=== PATIENT | female | born 1945 | race Caucasian/White ===

== ENCOUNTER → 2019-05-03 | Day surgery (SDC) | payer BC ==
--- NOTE | 2019-05-06 22:35 | OP ---
DATE OF OPERATION: 05/03/2019 PREOPERATIVE DIAGNOSIS: Right axillary adenopathy. POSTOPERATIVE DIAGNOSIS: Right axillary adenopathy. PROCEDURE: Right ultrasound guided core biopsy with clip placement. ANESTHESIA: Local. ATTENDING SURGEON: Raphael Atwood M.D. ESTIMATED BLOOD LOSS: Minimal. COMPLICATIONS: None. DESCRIPTION OF PROCEDURE: Patient was made aware of the risks and benefits of the procedure and consented. Patient was placed in supine position. Under sterile conditions with 1% lidocaine for local anesthesia, a small sandra was made in the skin using a 13-gauge suction biopsy device, inferolateral approach, under ultrasound guidance multiple cores were obtained and submitted to pathology. Likewise under ultrasound guidance, a clip was placed into the biopsy region. Well tolerated by the patient. Steri-Strips and a sterile bandage were applied. Will contact her with results. RAPHAEL ATWOOD M.D. [id number]
--- NOTE | 2019-05-10 13:23 | PATH ---
Surgical Pathology Report Patient Name: EDMOND CHEN [facility]. Rec. #: [id number] /Age/Gender: 1945 (Age: 74) / F Account: [id number] Location: [facility] RADIOLOGY U Taken: 05/03/2019 Received: 05/03/2019 Reported: 05/10/2019 Physicians: Raphael Atwood M.D. 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 (SEE NOTE). Note: The specimen is comprised predominantly of detached fragments and clusters of high grade malignant cells with extensive necrosis, amidst portions of lymph node tissue. Immunohistochemical studies performed at [facility] on block#2 show the following results: the malignant cells are negative for cytokeratin AE1/3, CK7, CK20, CD45, CD20 CD3 and S100. Immunohistochemical studies performed at [place], [place] ([id number]) on block #1 show the following results: the malignant cells show patchy moderate positivity for Cam 5.2, GISELLA and CD10. In addition, there is focal positivity for ADRIA-3. There is high Ki67 labeling (> 90%). CK5/6, AE1/3, GCDFP, mammaglobin, E-Cadherin, ER, KS, Her2, TTF-1, thyroglobulin, hepatocyte specific antigen (HSA), glypican 3, arginase, CEA(p), PAX8, RCC, CD30, BCL6, ALK, PAX5, Melan-A, SOX10, calretinin and WT-1 are negative. This malignant neoplasm displays an unusual immunophenotype, however, with a significant subset of the tumor cells showing reactivity for CAM 5.2 (rop-szcezzmjf-diwrgd cytokeratin) and GISELLA (epithelial membrane antigen), a diagnosis of poorly differentiated metastatic carcinoma is favored. CD10 positivity is an unusual finding, however CD10 has been shown to be positive in various non-hematolymphoid malignancies. ADRIA-3 is focally positive in the tumor cells; ADRIA-3 is predominantly positive in carcinomas of mammary and urothelial origin, however, positivity has been reported in malignancies from other primary sites including skin/adnexa. Correlation with clinical findings is recommended, with additional radiologic work-up as deemed necessary. Report of right upper back wedge biopsy from [place], [place] ([id number]) has been reviewed. Case discussed with Dr. Raphael Atwood on 05/10/19. Electronically Signed Nikole Rodriguez M.D. Gross Description Received in formalin labeled "right axilla biopsy," is a 3.0 x 2.3 x 0.3 cm aggregate of kinsey-yellow fragments of fibroadipose tissue admixed with blood clot. The formalin is filtered and the specimen is entirely submitted in 2 cassettes. Time to formalin fixation: < 1 minute Total formalin fixation time: Approximately 6 hours. 05/03/2019 saudi05/03/2019
== END | disposition home or self-care (01) ==
LOC: FRADUS-SUR 12:34
PROVIDERS: ATTEND Surgery Surgical Oncology
PROC: 07B53ZX Excision of Right Axillary Lymphatic, Percutaneous Approach, Diagnostic (ICD-10-PCS; principal; 2019-05-03)
PROC: BH40ZZZ Ultrasonography of Right Breast (ICD-10-PCS; 2019-05-03)
DX: C96.9 Malignant neoplasm of lymphoid, hematopoietic and related tissue, unspecified (principal); R59.0 Localized enlarged lymph nodes
CPT/HCPCS: 19083; 38505; 87899; 88305-TC; 88341-TC; 88342-TC; A4648